=== PATIENT | male | born 1955 | race Caucasian/White ===

== ENCOUNTER 2018-05-27 21:38 | Emergency (ER) | payer BC ==
[~2018-05-27] VITALS: Ht 185.4 cm; Wt 129.7 kg
[2018-05-27] MEDS ORDERED: MEDROLDOSEPACK PO (22:33)
[2018-05-27 22:43] VITALS: BP 133/76
== END 2018-05-27 22:43 | disposition home or self-care (01) ==
LOC: M.ERS 21:38
DX: L50.0 Allergic urticaria (principal)